=== PATIENT | female | born 1990 | race Two or more races ===

== ENCOUNTER 2021-07-06 05:48 | Day surgery (SDC) | payer OTHER ==
[2021-07-06] MEDS ORDERED: PROTONIX20 MG PO (09:13)
== END 2021-07-06 11:15 | disposition home or self-care (01) ==
LOC: AMB-ENDOS 05:48
PROVIDERS: ATTEND Surgery
DX: K29.50 Unspecified chronic gastritis without bleeding (principal); K44.9 Diaphragmatic hernia without obstruction or gangrene; B96.81 Helicobacter pylori [H. pylori] as the cause of diseases classified elsewhere; Z20.822 Contact with and (suspected) exposure to COVID-19; K76.0 Fatty (change of) liver, not elsewhere classified; I10 Essential (primary) hypertension